=== PATIENT | male | born 1960 | race Caucasian/White ===

== ENCOUNTER 2024-07-22 03:20 | Outpatient (CLI) | payer BC, SELFPAY ==
[2024-07-22 08:44] LABS: ALT 37 U/L (16-63); AST 19 U/L (15-37); Alkaline Phosphatase 46 U/L (46-116); Anion Gap 6.1 mmol/L (3-11); BUN 23 mg/dL (7-18); Bilirubin, Total 0.55 mg/dL (0.2-1.0); CO2 29.9 mmol/L (21.0-32.0); CREATININE 1.2 mg/dL (0.70-1.30); Calcium 9.6 mg/dL (8.5-10.1); Calculated LDL 207 mg/dL (<100); Chloride 103 mmol/L (98-107); Cholesterol 281 mg/dL (<200); Estimated GFR 68.38 (mL/min/1.73m2); Glucose 106 mg/dL (74-106); HDL Cholesterol 53 mg/dL (40-60); Potassium 4.5 mmol/L (3.5-5.1); Sodium 139 mmol/L (136-145); Total Protein 7.5 g/dL (6.4-8.2); Triglyceride 105 mg/dL (<150)
== END 2024-07-22 03:21 | disposition home or self-care (01) ==
PROVIDERS: PCP Family Medicine; Visit Provider Family Medicine
DX: E78.5 Hyperlipidemia, unspecified (principal)
CPT/HCPCS: 36415; 80053; 80061

== ENCOUNTER 2024-10-07 06:04 | Day surgery (SDC) | payer BC, SELFPAY ==
--- NOTE | 2024-10-06 17:16 | W.PREOPHP ---
Assessment and Plan Assessment and plan (1) Inguinal hernia, left: Status: Acute Assessment and plan: We reviewed the plan for an open left inguinal hernia repair once again, and Evan had the chance to ask any other questions. Nothing else is changed, and I see no reason to delay operative repair any longer. We can proceed with hernia repair as planned. History of Present Illness History of Present Illness Chief Complaint: left inguinal hernia Narrative: Pedro is 64 years old, is here with a chief complaint of a lump in the left groin that is been causing some increased pain. He first noticed it a few weeks ago after doing some [employer] work lifting some heavy boxes. At first, it was most obvious as a cosmetic issue, with a new bulge. However its become more prominent over the coming weeks, and as I mentioned, has become more painful especially towards the end of the day. He has had some success wearing a supportive garment to help keep pressure on the area. He is able to reduce it at nighttime when he is lying flat, but as soon as he gets up and starts moving around, it comes right back. He denies any obstructive symptoms like nausea or vomiting. Since his last visit in the office, managing this with a supportive garment has become a little more challenging, but otherwise there have been no major changes with regards to the interval history PFSH All Active Problems Inguinal hernia, left (Acute) Hyperlipidemia (Acute) Pulmonary nodules (Acute) Seen on coronary calcium scan Surgical History History of carpal tunnel surgery of left wrist 20 years ago H/O vasectomy 28 years ago H/O cervical spine surgery 6 discs, 25 years ago Family History (Updated 06/19/24 @ 14:15 by Carolynn Huston) Father Lung cancer Mother Heart disease Brother Testicle cancer Social History (Updated 06/24/24 @ 15:26 by Rupa Mallory) Smoking/Tobacco Use Status: Former Tobacco Use tobacco type: smokeless tobacco Quit Date: 02/10/22 Tobacco: How many years used: 38 Smokeless tobacco user: chewing tobacco Smoking risk assessment performed?: Yes Alcohol Intake: current Alcohol Intake frequency: a few times a month Drug use: Never Substance use type: does not use Adopted: No Caregiver/Support person: No Foster care: No Household members: spouse Housing: house Number of Children: 1 number of grandchildren: 3 Communication Needs: None Education Level: college Details: Vocational Do you need help understanding health information?: Never current occupation: retired Pets and animals: Yes (1) Pets and animals: dog(s) Sexually active: Yes Do you think of yourself as: straight/heterosexual Current gender identity: male What is your relationship status?: How often do you talk on the phone with friends or family?: once per week How often do you get together with friends or relatives?: once per week How often do you attend restoration or muslim services?: 4 or more times per year Do you belong to any clubs or organized social groups?: no Panel score (0-1 are the most socially isolated patients): 2 What type of physical activity do you participate in: weight lifting Duration: 15-30 minutes/day Frequency: 1-2 times per week Bibiana/Restorationist: Anglican Special bibiana needs: No Seatbelt use: always Helmet use: No (N/A) Drive intox or ride w/intox shuttle driver: No Additional Social history: [facility] Meds Allergies and Home Medications Allergies Allergy/AdvReac Type Severity Reaction Status Date / Time banana AdvReac Intermediate Nasal Verified 10/07/24 06:32 congestion Home Medications ?Medication ?Instructions ?Recorded ?Confirmed ?Type ascorbic acid (vitamin C) 1,000 mg 1 g PO DAILY 06/24/24 10/07/24 History capsule cholecalciferol (vitamin D3) 50 100 mcg PO DAILY 06/24/24 10/07/24 History mcg (2,000 unit) capsule magnesium oxide 500 mg PO DAILY 06/24/24 10/07/24 History zinc gluconate 50 mg tablet 50 mg PO DAILY 06/24/24 10/07/24 History turmeric 400 mg capsule 400 mg PO .every other day 07/29/24 10/07/24 History Exam Const General: cooperative, healthy appearing and not in acute distress Neck Neck: normal visual inspection, no lymphadenopathy and supple Thyroid: thyroid normal Resp Effort & Inspection: normal respiratory effort Auscultation: clear to auscultation bilaterally Cardio Jugular venous pressure: no JVD Rate: regular rate Rhythm: regular rhythm Heart Sounds: S1 normal and S2 normal GI Inspection: normal to inspection Palpation: soft, no guarding, hernia (Reducible left inguinal) and nontender Percussion: normal to percussion Auscultation: normal bowel sounds Neuro General: patient alert, patient awake and patient oriented x3 Psych Appearance: grossly normal
--- NOTE | 2024-10-06 17:17 | ROE_ITS ---
Operative Note Operative Note PRE-OP DIAGNOSIS: Left inguinal hernia POST-OP DIAGNOSIS: other (Direct left inguinal hernia) PROCEDURE: Open left inguinal herniorrhaphy with mesh SURGEON: Abdifatah Olson SPREADING MACHINE OPERATOR: Yen Pedraza ANESTHESIA TYPE: Local By Surgeon, General LMA/ETT and Other (Ultrasound-guided left inguinal tap block) Refer to Anesthesia Record ESTIMATED BLOOD LOSS: 25 COMPLICATIONS: None Patient was transported to: PACU Patient's condition: stable Implants: Bard PerFix light large plug and patch Indications: Evan is a 64-year-old male with a symptomatic left inguinal hernia Findings: Left-sided direct inguinal hernia Procedure Description: I began by confirming the correct site with the patient. We reviewed the plan for surgery. We then moved back to the operating room, he was assisted onto the OR table. Great care was taken to ensure that he was padded and supported appropriately. Next, after induction of general anesthesia, the left inguinal region was blocked using ultrasound guidance by the anesthesia team. The surgical site was then prepped and draped in the usual fashion. I began by making an oblique incision over the left inguinal region. I dissected down through the skin to the deep fascia. Next, I incised the fascia along the le ngth of the inguinal canal to the external ring. I then carefully identified the ilioinguinal nerve and sharply divided. Once this was complete, I bluntly dissected the shelving edge of the inguinal ligament down towards the pubic tubercle. Here, I encircled all cord structures with a Bianca drain. Next, I began dissecting the specific cord structures. Great care was taken to spare the vas deferens and the blood supply to the testicle. Next, I isolated the hernia sac from the other inguinal structures. The hernia was quite medial, and as it was gently dissected free, it was clear that this was a direct inguinal hernia. I then used a large mesh plug to obliterate the defect. I fixed in place with interrupted Prolene stitches. The remainder of the cord was carefully skeletonized. I did not appreciate any indirect inguinal component. The internal ring integrity was maintained. Next, I buttressed the posterior floor of the inguinal canal with a large mesh patch. I started by fixing it to the pubic tubercle. Next, I used Prolene sutures to affix it to the shelving edge of the inguinal ligament and the conjoined tendon. Laterally I tacked it to the internal oblique fascia and reconstructed an internal ring without any strain on the cord structures. Once this was complete, I irrigated the surgical field. It appeared hemostatic. I then closed the anterior portion of the fascia to reconstruct the front wall of the inguinal canal. I did this with interrupted Vicryl stitches. Once again, I irrigated the surgical field and inspected for hemostasis. Finally, I approximated the superficial fascia and the deep layers of the skin with absorbable suture. Skin was closed with running subcuticular stitches. Bandages were applied, the patient was awakened and transferred to the recovery unit. Date of Procedure: 10/07/24
--- NOTE | 2024-10-06 17:18 | W.PM.DSUDISC ---
Date of service: 10/07/24 Discharge Plan Disposition Patient Disposition: Home Condition: Good Discharge Details Reason For Visit: Left inguinal hernia Attending Provider: Abdifatah Olson Primary Care Provider: Orlando William Home Meds and New Rx's Prescriptions: Continued ascorbic acid (vitamin C) 1,000 mg capsule 1 g PO DAILY cholecalciferol (vitamin D3) 50 mcg (2,000 unit) capsule 100 mcg PO DAILY Patient Comments: 4,000 IU winter/2,000 IU summer zinc gluconate 50 mg tablet 50 mg PO DAILY magnesium oxide 500 mg magnesium tablet 500 mg PO DAILY turmeric 400 mg capsule 400 mg PO .every other day Discharge Instructions Instructions: Groin Hernia Repair (DC) Additional Instructions: Read, was great seeing you today, and I hope you make a quick and uneventful recovery from the operation. We were able to repair the hernia just as we discussed in the office. Hopefully this will provide a durable repair over the course of your lifetime. Expect to have some pain in the coming days as some of the numbing medication wears down. Using ice packs and trying to keep her pelvis elevated to reduce swelling will help with pain. I would expect quite a bit of bruising, which is very common. It may even extend down into the scrotum. Again, the more you can keep the swelling down the better you will feel. If you need anything at all, or have any questions, please do not hesitate to call at any time. Otherwise, I look forward to seeing you in the office. 1. Resume all of your regular medications. 2. Use ice packs over the incision to help with pain and swelling. 3. Alternate [id number] Tylenol and ibuprofen every 6 hours for the first 2 days, then use as needed. Use the prescription for tramadol if needed for more severe pain. 4. Leave bandage in place for 24 hours, then remove. 5. Shower with warm soapy water. Pat dry. Use a bandaid if needed to protect your clothing. 6. No soaking or tub baths until I see you in the office. 7. No heavy lifting until I see you in the office. 8. Call the office (or go directly to the emergency room after hours) if you notice any of the following: Develop chills (warm to touch), or if you have a thermometer and your temperature is above 101 Difficulty breathing or difficultly swallowing Persistent vomiting Any bleeding ? exceeding one tablespoon 9. Call your physician if the site where your intravenous was started becomes red, swollen, painful, and warm to touch. Referrals: Abdifatah Olson MD [ [facility] STAFF PHYSICIAN] - (October 23 at 8:30 AM) Activity:: No heavy lifting Remove Dressings/Wound Care:: 24 hours Shower/Bathe:: 24 hours Diet:: As Tolerated Discharge Orders Discharge Orders: Discharge Order (Routine); Ordered 10/06/24 Ordered By: Abdifatah Olson DS: Diagnosis Discharge Diagnosis (1) Inguinal hernia, left: Status: Acute Asessment and Plan: Routine postoperative follow-up
[2024-10-07] VITALS (23 sets, daily range): BP systolic 104–141; BP diastolic 61–88; PULSE 52–70; RESP 10–17; TEMP 36–36.8; O2SAT 93–98; BMI 26.4
[2024-10-07] MEDS: Acetaminophen 500 MG TAB 1000 MG PO (06:55)
[2024-10-07] MEDS: Celecoxib 200 MG CAP PO (06:56)
[2024-10-07] MEDS: Gabapentin 300 MG CAP 600 MG PO (06:56)
[2024-10-07] MEDS: Lactated Ringers 1,000 ML 80 ML IV (07:00)
--- NOTE | 2024-10-07 07:03 | ANES.PREOP_ITS ---
General Info Date of Service Date Performed: 10/07/24 Height: 6 ft 4 in Weight: 98.7 kg Body Mass Index (BMI): 26.4 Surgical Procedure: Operation Date: 10/07/24 07:40 Proposed Procedure Side Surgeon p Herniorrhaphy Inguinal w/Mesh Left Abdifatah Olson MD Meds Allergies and Home Medications Allergies Allergy/AdvReac Type Severity Reaction Status Date / Time banana AdvReac Intermediate Nasal Verified 10/07/24 06:32 congestion Home Medication ?Medication ?Instructions ?Recorded ascorbic acid (vitamin C) 1,000 mg 1 g PO DAILY 06/24/24 capsule cholecalciferol (vitamin D3) 50 100 mcg PO DAILY 06/24/24 mcg (2,000 unit) capsule magnesium oxide 500 mg PO DAILY 06/24/24 zinc gluconate 50 mg tablet 50 mg PO DAILY 06/24/24 turmeric 400 mg capsule 400 mg PO .every other day 07/29/24 Current Visit Medications: Current Medications Generic Name Dose Route Start Last Admin Trade Name Freq PRN Reason Stop Dose Admin Acetaminophen 1,000 mg 10/07/24 06:00 10/07/24 06:55 Acetaminophen 500 Mg Tab PO 10/07/24 23:59 1,000 mg PREOP SHRUTHI Administration Celecoxib 200 mg 10/07/24 06:00 10/07/24 06:56 Celecoxib 200 Mg Cap PO 10/07/24 23:59 200 mg PREOP SHRUTHI Administration Gabapentin 600 mg 10/07/24 06:00 10/07/24 06:56 Gabapentin 300 Mg Cap PO 10/07/24 23:59 600 mg PREOP SHRUTHI Administration Hydromorphone HCl 0.2 mg 10/06/24 17:17 Hydromorphone 2 Mg/Ml Syr IVP 11/05/24 17:16 Q1H PRN PRN Ringer's Solution 1,000 mls @ 80 mls/hr 10/07/24 06:00 10/07/24 07:00 IV 10/07/24 23:59 80 mls/hr INFUSION SHRUTHI Administration Cefazolin Sodium/Dextrose 2 gm in 50 mls @ 100 mls/hr 10/07/24 06:00 Ancef Duplex IVPB 10/07/24 23:59 PREOP SHRUTHI IV Miscellaneous Supplies 1 each 10/07/24 06:00 Iv Access IV 10/07/24 23:59 DIRECTED SHRUTHI Sodium Chloride 0 ml 10/07/24 06:00 Normal Saline Flush 10 Ml Syr IV 10/07/24 23:59 PRN PRN Sodium Chloride 0 ml 10/07/24 06:00 Normal Saline 10 Ml Vial IJ 10/07/24 23:59 DIRECTED PRN Sterile Water 0 ml 10/07/24 06:00 Water,Injection,Sterile 10 Ml Vial IJ 10/07/24 23:59 DIRECTED PRN Tramadol HCl 50 mg 10/06/24 17:17 Tramadol 50 Mg Tab PO 11/05/24 17:16 Q6H PRN PRN Pain PFSH Active Problems Active Problems: Problem Status Onset Code Inguinal hernia, left Acute K40.90 Hyperlipidemia Acute E78.5 Pulmonary nodules Acute R91.8 Surgical History Surgical History History of carpal tunnel surgery of left wrist 20 years ago H/O vasectomy 28 years ago H/O cervical spine surgery 6 discs, 25 years ago Tobacco Smoking/Tobacco Use Status: Former Tobacco Use Smokeless tobacco user: chewing tobacco Passive smoking exposure: No Alcohol Alcohol Intake: current Alcohol intake frequency: a few times a month Substance Use Substance use: Never Substance use type: does not use Vital Signs and Lab Results Vital Signs Most Recent Vital Signs in EMR: Most Recent Vital Signs Temp Pulse Resp BP Pulse Ox 36.2 C L 70 17 132/83 98 10/07/24 06:23 10/07/24 06:23 10/07/24 06:23 10/07/24 06:23 10/07/24 06:23 Lab Results Blood Type / Crossmatch: No Data to Display Complete Blood Count: No Data to Display Complete Metabolic Panel: No Data to Display Liver Function Panel: No Data to Display Coagulation Panel: No Data to Display Cardiac Panel: No Data to Display Arterial Blood Gas: 2 No Data to Display Venous Blood Gas: No Data to Display Pancreas Panel: No Data to Display Thyroid Panel: No Data to Display Infectious Disease: No Data to Display Blood Cultures: No Data to Display Toxicology Panel: No Data to Display Anesthesia Assessment and Plan Anesthesia History Personal History: No History of Anesthesia Complications Family History: No Family History of Anesthesia Complications Exercise Tolerance Exercise Tolerance: Metabolic Equivalents>4 Pertinent Negatives Pertinent Negatives: No Symptoms of GERD, No Major Cardiovascular Symptoms or Complaints, No Major Pulmonary Symptoms or Complaints and No History of CVA/TIA Cardiac & Pulmonary Exam Cardiac Exam: Normal S1/S2 Heart Sounds Pulmonary Exam: Clear Bilateral Breath Sounds Implantable Cardiac Device Does patient have a Pacemaker or an ICD?: No Airway Exam Known Difficult Airway: No Mallampati Class: 1 Mouth Opening: Normal (> 3cm) Thyromental Distance: Greater than 3 cm Neck Range of Motion: Full ROM (hx of cervical spine surgery 6 levels 1999, no ROM limitations) Neck Circumference: Normal Teeth Condition: Normal Dentition ASA Classification ASA Score: ASA 2 Emergency Case?: No NPO Status NPO Status: NPO Clears >2 hours, Solids >8 hours Anesthesia Plan Resuscitation Status: Full Code Anesthesia Technique: General Anesthesia Airway Planned: LMA Pain Management: Surgeon and patient request nerve block Monitors Used: Standard Monitors
--- NOTE | 2024-10-07 07:46 | W.ANESNERVE ---
Nerve Block Single Injection Procedure Date and Time Date Performed: 10/07/24 Procedure Start: 07:34 Location Where Procedure Performed Procedure Location: Operating Room Procedure Stop: 07:40 Reason Performed: Postoperative Analgesia Requesting Provider: Abdifatah Olson Timeout Performed Timeout Performed: Yes Monitoring Used ECG, Blood Pressure, SpO2, ETCO2 and See EMR for corresponding vital signs Sterility Sterility: Hand Hygiene, Surgical Cap, Surgical Mask, Sterile Gloves, Sterile Drape/Sheet and Chlorhexidine Sedation Given During Procedure Sedation Given (Indicate Dose Given): No Sedation given Patient Mental Status Patient Mental Status: Performed under general anesthesia Nerve Block 1st Nerve Block: Laterality: Left Block Type: TAP Unilateral Ultrasound Image Saved?: Yes Needle / Catheter Used: 100mm SonoPlex II Local Anesthetic Bolus (Indicate Dose Given): Injected in 3-5ml increments after negative blood aspiration, Bupivacaine 0.25% Dose:: 20 ml and Exparel Dose:: 10 ml Additives (Indicate Dose Given): None Ultrasound: Sterile probe cover and gel used Nerve Stimulator: Not Used Paresthesia: None Procedure Tolerated: No Complications and Patient tolerated well Procedure Outcome: Successful Performed By: Britni Lipscomb
[2024-10-07] MEDS: Bupivacaine 0.5% Pres-Free W/EPI 30 ML VIAL (08:35)
[2024-10-07] MEDS: fentaNYL 100 MCG/2 ML VIAL IVP (09:21)
[2024-10-07] MEDS: traMADol 50 MG TAB PO (10:09)
--- NOTE | 2024-10-07 10:19 | W.ANESPOSTOP ---
Postoperative Evaluation Date, Time and Location Date Performed: 10/07/24 Time Performed: 10:19 Patient Location: Day Surgery Unit Vital Signs Most Recent Imported Vital Signs: Most Recent Vital Signs Temp Pulse Resp BP Pulse Ox 36.0 C L 52 L 16 121/83 97 10/07/24 10:12 10/07/24 10:12 10/07/24 10:12 10/07/24 10:12 10/07/24 10:12 Pain Score Most Recent Pain Score: Most Recent Pain Score Pain Level 3 10/07/24 10:12 Assessment Mental Status: Awake (Alert & Oriented to Patient Baseline) Airway and Respiratory Function: Patent airway with normal (patient baseline) respiratory exam Cardiovascular Function: Hemodynamically Stable Hydration Status: Adequately Hydrated Nausea & Vomiting: No Nausea or Vomiting Pain: Pt. Denies Any Pain Peripheral Nerve Block: Regional nerve block not resolved at time of post operative discharge
== END 2024-10-07 11:31 | disposition home or self-care (01) ==
PROVIDERS: PCP Family Medicine; Visit Provider Surgery
PROC: (CPT 49505; principal; 2024-10-07 07:30)
DX: K40.90 Unilateral inguinal hernia, without obstruction or gangrene, not specified as recurrent (principal)
CPT/HCPCS: 49505; 64486; C1781; J0665; J0666; J0690; J1100; J2003; J2405; J2704; J3010